=== PATIENT | female | born 2000 | race Caucasian/White ===

== ENCOUNTER 2025-03-09 11:20 | Emergency (ER) | payer BC, SELFPAY ==
[2025-03-09 11:25] VITALS: BP 132/84; PULSE 102; RESP 18; TEMP 36.8; O2SAT 98
--- NOTE | 2025-03-09 11:29 | ED.GIBLEED ---
HPI - GI Bleed General Chief complaint: GI Bleed Stated complaint: rectal bleeding bright red Time Seen by Provider: 03/09/25 11:25 Focused HPI: Patient is a 25-year-old female who presents to the ER with rectal bleeding. She reports she 1st noticed this symptom approximately 2 weeks ago. Patient reports her symptoms subsided but this morning she noticed ?bright red blood after she had a bowel movement. Patient denies any medical history relevant to this ER visit. She denies any history of constipation. Patient denies any urinary symptoms, recent fevers, or back pain. GENERAL: Well-appearing, well-nourished, and in no acute distress. HEAD: Normocephalic, atraumatic. CHEST: Clear to auscultation. ?No respiratory distress. HEART: Regular rate and rhythm.? NEURO: ?Alert and oriented x3. Patient screened in triage and initial orders placed.? ?Additional care and disposition to be based upon?diagnostic testing and treatment. Related Data Allergies Allergy/AdvReac Type Severity Reaction Status Date / Time No Known Allergies Allergy Verified 03/09/25 11:27 Course Vital Signs Vital signs: Vital Signs Temperature 36.8 C 03/09/25 11:25 Pulse Rate 102 H 03/09/25 11:25 Respiratory Rate 18 03/09/25 11:25 Blood Pressure 132/84 03/09/25 11:25 Pulse Oximetry 98 03/09/25 11:25 Temperature 37.2 C 03/09/25 13:49 Pulse Rate 125 H 03/09/25 13:49 Respiratory Rate 18 03/09/25 11:25 Blood Pressure 120/86 03/09/25 13:49 Pulse Oximetry 100 03/09/25 13:49 MDM - GI Bleed Lab Data 03/09/25 11:40 03/09/25 11:40 Labs: Lab Results 03/09/25 03/09/25 Range/Units 11:40 11:45 WBC 7.3 (4.5-10.0) K/mm3 RBC 4.38 (4.2-5.4) M/mm3 Hgb 14.3 (12.0-15.0) g/dL Hct 41.8 (37.0-47.0) % MCV 95.4 (80-100) fl MCH 32.6 (26-34) pg MCHC 34.2 (32-36) g/dl RDW 11.8 (11.5-14.5) % Plt Count 222 (150-375) k/mm3 MPV 10.3 (7.4-10.4) fl Immature Gran % (Auto) 0.3 (0-0.5) % Neut % (Auto) 47.3 (45.5-73.1) % Lymph % (Auto) 39.9 (18.3-44.2) % [place] % (Auto) 8.2 (2.6-8.5) % Eos % (Auto) 3.3 (0-4.4) % Baso % (Auto) 1.0 (0.2-1.2) % Lymph # (Auto) 2.92 (0.9-3.2) K/mm3 [place] # (Auto) 0.6 (0.1-0.6) K/mm3 Eos # (Auto) 0.2 (0-0.3) K/mm3 Baso # (Auto) 0.1 (0.0-0.1) K/mm3 Abs Immat Gran (auto) 0.02 (0.00-0.031) K/mm3 Absolute Neuts (auto) 3.5 (1.3-6.7) K/mm3 Absolute Nucleated RBC 0.000 (0.0-0.012) K/mm3 Nucleated RBC % 0.0 (0.0-0.2) % PT 12.7 (11.1-14.7) Seconds INR 1.0 APTT 30.7 (22.3-36.8) Seconds Sodium 135 L (137-145) mmol/L Potassium 4.1 (3.4-5.0) mmol/L Chloride 101 (98-107) mmol/L Carbon Dioxide 24 (22-30) mmol/L Anion Gap 10 (4-12) mmol/L BUN 15 (7-17) mg/dL Creatinine 0.84 (0.7-1.0) mg/dL Estim Creat Clear Calc 85 ml/min Estimated GFR > 60 (59 - ) Glucose 95 (65-110) mg/dL Calcium 9.9 (8.4-10.2) mg/dL Total Bilirubin 0.7 (0.2-1.3) mg/dL AST 29 (14-36) U/L ALT 29 (6-35) U/L Alkaline Phosphatase 58 (38-126) U/L Total Protein 8.2 (6.3-8.2) g/dL Albumin 5.0 (3.5-5.1) g/dL Urine Color Yellow (Yellow) Urine Appearance Clear (Clear) Urine pH 6.5 (5.0-9.0) Ur Specific [place] 1.018 (1.001-1.035) Urine Protein Negative (Negative) mg/dL Urine Glucose (UA) Negative (Negative) mg/dL Urine Ketones Negative (Negative) mg/dL Ur Blood (Man) Non-hemolyzed trace H (Negative) Urine Nitrate Positive H (Negative) Urine Bilirubin Negative (Negative) Urine Urobilinogen 1.0 (<2.0) mg/dL Leukocyte Esterase Rfl 1+ H (Negative) BHUPENDRA/UL Urine RBC 0-2 (0-2) /hpf Urine WBC 6-10 H (0-3) /hpf Ur Squamous Epith Cells Few (Few) /hpf Urine Bacteria 1+ H /hpf Urine Casts 0-2 Discharge Plan Discharge Clinical Impression: Urinary tract infection, Rectal bleed Patient Disposition: Home Condition: Stable Instructions: Rectal Bleeding (ED), Urinary Tract Infection in Women (DC) Additional Instructions: RETURN IF SYMPTOMS ARE WORSENING , CALL YOUR FAMILY PHYSICIAN FOR APPOINTMENT, TAKE TYLENOL NEEDED FOR ACHES AND PAIN, CONTINUE HOME MEDICATIONS. Patient Language: [place] Prescriptions: New nitrofurantoin monohyd/m-cryst [Macrobid] 100 mg capsule 100 mg PO Q12H 5 Days Qty: 10 0RF Rx Instructions: must administer with a meal/food Follow-up/Referrals: PHYSICIAN NOT ON STAFF,NONSTAFF [Primary Care Provider] - Aditya Pete MD [Physician] - 03/11/25
[2025-03-09 11:47] LABS: Hematocrit 41.8 % (37.0-47.0); Hemoglobin 14.3 g/dL (12.0-15.0); Immature Granulocyte Percent A 0.3 % (0-0.5); Lymphocytes Absolute Auto 2.92 K/mm3 (0.9-3.2); Mean Corpuscular HGB Conc 34.2 g/dl (32-36); Mean Corpuscular Hemoglobin 32.6 pg (26-34); Mean Corpuscular Volume 95.4 fl (80-100); Nucleated Red Blood Cells Absolute Auto 0.000 K/mm3 (0.0-0.012); Nucleated Red Blood Cells Perc 0.0 % (0.0-0.2); Platelet Count Result 222 k/mm3 (150-375); Red Blood Count 4.38 M/mm3 (4.2-5.4); White Blood Count 7.3 K/mm3 (4.5-10.0)
[2025-03-09 11:56] LABS: Add Urine Microscopic? YES; Appearance Urine Clear (Clear); Glucose Urine UA Negative (Negative); Leukocyte Esterase Ur 1+ LEU/UL (Negative); Nitrate Urine Positive (Negative); Non Pathogenic Casts 0-2; Specific Grav Ur 1.018 (1.001-1.035)
[2025-03-09 12:01] LABS: INR 1.0; Partial Thromboplastin Time 30.7 Seconds (22.3-36.8); Prothrombin Time 12.7 Seconds (11.1-14.7)
[2025-03-09 12:11] LABS: Alanine Aminotransferase 29 U/L (6-35); Albumin Level 5.0 g/dL (3.5-5.1); Alkaline Phosphatase 58 U/L (38-126); Anion Gap 10 mmol/L (4-12); Aspartate Amino Transferase 29 U/L (14-36); Bilirubin,Total 0.7 mg/dL (0.2-1.3); Blood Urea Nitrogen 15 mg/dL (7-17); Calcium 9.9 mg/dL (8.4-10.2); Carbon Dioxide 24 mmol/L (22-30); Chloride 101 mmol/L (98-107); Estimated CRCL calculation 85 ml/min; Estimated Glomerular Filt Rate > 60; Glucose 95 mg/dL (65-110); Potassium 4.1 mmol/L (3.4-5.0); Sodium 135 mmol/L (137-145); Total Protein 8.2 g/dL (6.3-8.2)
[2025-03-09 13:49] VITALS: BP 120/86; PULSE 125; TEMP 37.2; O2SAT 100
--- NOTE | 2025-03-09 16:11 | ED_ITS ---
HPI - GI Bleed General Chief complaint: GI Bleed Stated complaint: rectal bleeding bright red Time Seen by Provider: 03/09/25 11:25 Source: patient Mode of arrival: ambulatory Limitations: no limitations History of Present Illness HPI Narrative: 25 YEARS OLD WHITE FEMALE CAME TO THE ED BY PRIVATE CAR COMPLAINING OF NOTICE BLOOD IN THE TOILET TODAY. PATIENT HAD SIMILAR SYMPTOMS A FEW WEEKS AGO. PATIENT DENIES ANY FEVER, CHILLS, NAUSEA, VOMITING, ABDOMINAL PAIN, LIGHTHEADEDNESS, DIZZINESS. PATIENT IS HEALTHY OTHERWISE NOT ON ANY MEDICATIONS. PATIENT DENIES ANY RECTAL PAIN. Related Data Allergies Allergy/AdvReac Type Severity Reaction Status Date / Time No Known Allergies Allergy Verified 03/09/25 11:27 Review of Systems 2 Review of Systems: All systems reviewed & are unremarkable except as noted in HPI and below Exam 2 Narrative: GENERAL APPEARANCE: WELL-DEVELOPED, WELL-NOURISHED SKIN: NORMAL COLOR HEAD: NORMOCEPHALIC, NONTRAUMATIC EYES: CLEAR CONJUNCTIVA ENT: OROPHARYNX NORMAL, EARS NORMAL, NOSE NORMAL NECK: SUPPLE, NONTENDER CHEST AND RESPIRATORY: AIRWAY PATENT, NO RESPIRATORY DISTRESS, NO ACCESSORY MUSCLE USE HEART: REGULAR RATE/RHYTHM ABDOMEN: SOFT, NONTENDER, NO ORGANOMEGALY, QUIET BOWEL SOUNDS, RECTAL EXAM SHOWED NO HEMORRHOIDS, NO TENDERNESS, NO ABSCESS, NO RASH, GUAIAC NEGATIVE VASCULAR: NORMAL PERIPHERAL PULSES, NORMAL CAPILLARY REFILL. MUSCULOSKELETAL: NORMAL RANGE OF MOTION, NONTENDER BACK NEUROLOGIC: ALERT AND ORIENTED ?3, ACADEMIC SUCCESS COORDINATOR IS NORMAL TESTED, NO GROSS MOTOR DEFICIT Course Vital Signs Vital signs: Vital Signs Temperature 36.8 C 03/09/25 11:25 Pulse Rate 102 H 03/09/25 11:25 Respiratory Rate 18 03/09/25 11:25 Blood Pressure 132/84 03/09/25 11:25 Pulse Oximetry 98 03/09/25 11:25 Temperature 37.2 C 03/09/25 13:49 Pulse Rate 125 H 03/09/25 13:49 Respiratory Rate 18 03/09/25 11:25 Blood Pressure 120/86 03/09/25 13:49 Pulse Oximetry 100 03/09/25 13:49 MDM - GI Bleed MDM Narrative Medical decision making narrative: PATIENT PRESENTS WITH BLOOD IN THE TOILET VITAL SIGNS ARE STABLE PHYSICAL EXAMINATION IS BENIGN, RECTAL EXAM SHOWED NO HEMORRHOIDS OR MASS, GUAIAC NEGATIVE DIFFERENTIAL DIAGNOSIS INCLUDE LOWER GI BLEED, HEMORRHOIDS, PROCTITIS, BLOOD WORKUP TODAY INCLUDES CBC, CMP SHOWED NO ABNORMALITIES URINALYSIS CAME BACK POSITIVE FOR NITRATE, TRACE BLOOD NOT ENOUGH TO CAUSE GROSS BLEEDING IN THE TOILET DIAGNOSIS URINARY TRACT INFECTION, RECTAL BLEED. DISCHARGED ON MACROBID, FOLLOW-UP WITH [employer] THE PT WAS DISCHARGED TO HOME.THE PT,S CONDITION UPON DISCHARGE WAS FAIR,EDUCATION WAS PROVIDED TO THE PT IN REFERENCE TO THE FINAL IMPRESSION,DISCHARGE STUDY RESULTS,TREATMENT,PROGNOSIS AND NEED FOR FOLLOW UP . Differential Diagnosis Differential diagnosis: Likely hemorrhoids and Lower gastrointestinal hemorrhage Medical Records Attestation: I reviewed the patient's medical records. Lab Data Attestation: I reviewed the patient's lab results. 03/09/25 11:40 03/09/25 11:40 Labs: Lab Results 03/09/25 03/09/25 Range/Units 11:40 11:45 WBC 7.3 (4.5-10.0) K/mm3 RBC 4.38 (4.2-5.4) M/mm3 Hgb 14.3 (12.0-15.0) g/dL Hct 41.8 (37.0-47.0) % MCV 95.4 (80-100) fl MCH 32.6 (26-34) pg MCHC 34.2 (32-36) g/dl RDW 11.8 (11.5-14.5) % Plt Count 222 (150-375) k/mm3 MPV 10.3 (7.4-10.4) fl Immature Gran % (Auto) 0.3 (0-0.5) % Neut % (Auto) 47.3 (45.5-73.1) % Lymph % (Auto) 39.9 (18.3-44.2) % [place] % (Auto) 8.2 (2.6-8.5) % Eos % (Auto) 3.3 (0-4.4) % Baso % (Auto) 1.0 (0.2-1.2) % Lymph # (Auto) 2.92 (0.9-3.2) K/mm3 [place] # (Auto) 0.6 (0.1-0.6) K/mm3 Eos # (Auto) 0.2 (0-0.3) K/mm3 Baso # (Auto) 0.1 (0.0-0.1) K/mm3 Abs Immat Gran (auto) 0.02 (0.00-0.031) K/mm3 Absolute Neuts (auto) 3.5 (1.3-6.7) K/mm3 Absolute Nucleated RBC 0.000 (0.0-0.012) K/mm3 Nucleated RBC % 0.0 (0.0-0.2) % PT 12.7 (11.1-14.7) Seconds INR 1.0 APTT 30.7 (22.3-36.8) Seconds Sodium 135 L (137-145) mmol/L Potassium 4.1 (3.4-5.0) mmol/L Chloride 101 (98-107) mmol/L Carbon Dioxide 24 (22-30) mmol/L Anion Gap 10 (4-12) mmol/L BUN 15 (7-17) mg/dL Creatinine 0.84 (0.7-1.0) mg/dL Estim Creat Clear Calc 85 ml/min Estimated GFR > 60 (59 - ) Glucose 95 (65-110) mg/dL Calcium 9.9 (8.4-10.2) mg/dL Total Bilirubin 0.7 (0.2-1.3) mg/dL AST 29 (14-36) U/L ALT 29 (6-35) U/L Alkaline Phosphatase 58 (38-126) U/L Total Protein 8.2 (6.3-8.2) g/dL Albumin 5.0 (3.5-5.1) g/dL Urine Color Yellow (Yellow) Urine Appearance Clear (Clear) Urine pH 6.5 (5.0-9.0) Ur Specific [place] 1.018 (1.001-1.035) Urine Protein Negative (Negative) mg/dL Urine Glucose (UA) Negative (Negative) mg/dL Urine Ketones Negative (Negative) mg/dL Ur Blood (Man) Non-hemolyzed trace H (Negative) Urine Nitrate Positive H (Negative) Urine Bilirubin Negative (Negative) Urine Urobilinogen 1.0 (<2.0) mg/dL Leukocyte Esterase Rfl 1+ H (Negative) BHUPENDRA/UL Urine RBC 0-2 (0-2) /hpf Urine WBC 6-10 H (0-3) /hpf Ur Squamous Epith Cells Few (Few) /hpf Urine Bacteria 1+ H /hpf Urine Casts 0-2 Critical Care Time Critical Care Time Critical Care Time: No Discharge Plan Discharge Clinical Impression: Urinary tract infection, Rectal bleed Patient Disposition: Home Condition: Stable Instructions: Rectal Bleeding (ED), Urinary Tract Infection in Women (DC) Additional Instructions: RETURN IF SYMPTOMS ARE WORSENING , CALL YOUR FAMILY PHYSICIAN FOR APPOINTMENT, TAKE TYLENOL NEEDED FOR ACHES AND PAIN, CONTINUE HOME MEDICATIONS. Patient Language: Sami Prescriptions: New nitrofurantoin monohyd/m-cryst [Macrobid] 100 mg capsule 100 mg PO Q12H 5 Days Qty: 10 0RF Rx Instructions: must administer with a meal/food Follow-up/Referrals: PHYSICIAN NOT ON STAFF,NONSTAFF [Primary Care Provider] - Aditya Pete MD [Physician] - 03/11/25
--- OUTSIDE RECORDS SUMMARY | 2025-03-09 16:29 | XMS_ITS | Clinical Summary ---
Author Organization [facility] Address [address] [place] [id number] Care Team Providers Care Clinical Appeals Reviewer Name Role Phone Drew Hickey MD Primary Care Provider [phone] Allergies No known active allergies Medications No known medications Family History Medical History Relation Comments No Known Problems Father No Known Problems Mother Relation Status Comments Father Alive Mother Alive Social History Tobacco Use Types Packs/Day Years Used Date Smoking Tobacco: Never Smokeless Tobacco: Never Alcohol Use Standard Drinks/Week Comments Never 0 (1 standard drink = 0.6 oz pur e alcohol) AUDIT-C Answer Date Recorded Frequency of Alcohol Consumption Never 10/17/2019 Average Number of Drinks Not on file 020 Frequency of Binge Drinking Not on file 08/2019 Comments Unknown Sex and Gender Information Value Date Recorded Sex Assigned at Not on file 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 Gender Identity Not on file Sexual Orientation Not on file Last Filed Vital Signs Vital Sign Reading Time Taken Comments Blood Pressure 116/81 11/16/2023 9:59 PM CDT Pulse 94 11/16/2023 9:59 PM CDT Temperature 36.9 C (98.4 F) 11/16/2023 9:59 PM CDT Respiratory Rate 16 11/16/2023 9:59 PM CDT Oxygen Saturation 100% 11/16/2023 9:59 PM CDT Inhaled Oxygen Concentration - - Weight 54.4 kg (120 lb) 11/16/2023 9:59 PM CDT Height 167.6 cm (5' 6) 11/16/2023 9:59 PM CDT Body Mass Index 19.37 11/16/2023 9:59 PM CDT Plan of Treatment Health Maintenance Due Date Last Done Comments Cervical Cancer Screening Pap Smear (Age 21 to 29) Every 3 Years 2002 Cervical Cancer Screening 2002 Annual Physical 2005 DTaP, Tdap and Td Vaccines (6 - Tdap) 2013 02/03/2007, 01/24/2007, 04/14/2003, Additional history exists HPV Vaccines (2 - 2-dose series) 09/30/2013 03/30/2013 Meningococcal B Vaccine (1 of 2 - Standard) 2018 Hepatitis C 01/11/2020 Hepatitis B Vaccines (1 of 3 - 19+ 3-dose series) 2021 COVID-19 Vaccine ( - season) 2024 Meningococcal Vaccine Completed 12/10/2018 Pneumococcal Vaccine: Pediatrics (0 to 5 Years) and At-Risk Patients (6 to 49 Years) Aged Out No longer eligible based on patient's age to complete this topic RSV Immunizations Under 20 Months Aged Out No longer eligible based on patient's age to complete this topic Insurance [employer] Care Teams Clinical Appeals Reviewer Relationship Specialty Start Date End Date Drew Hickey MD PCP - General FAMILY PRACTICE 05/26/19
--- OUTSIDE RECORDS SUMMARY | 2025-03-09 16:29 | XMS_ITS | Encounter Summary ---
Author Organization [facility] Address [address] [place] [address] Care Team Providers Care Laboratory Analyst Name Role Phone Drew Hickey MD Primary Care Provider [phone] Encounter Details Date Type Department Care Team (Late st Contact Info) Description 01/23/[address] 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
== END 2025-03-09 16:59 | disposition home or self-care (01) ==
PROVIDERS: Registered Nurse; Emergency Provider Emergency Medicine
DX: K62.5 Hemorrhage of anus and rectum (principal); N39.0 Urinary tract infection, site not specified
CPT/HCPCS: 36415; 80053; 81001; 85025; 85610; 85730; 87086; 99283